=== PATIENT | male | born 1940 | race Two or more races ===

== ENCOUNTER 2024-11-17 16:37 | Inpatient (IN) | payer MEDICARE, MEDICAID ==
[~2024-11-17] VITALS: Ht 177.8 cm; Wt 86.3 kg
--- NOTE | 2024-11-17 17:18 | ECG ---
[facility] Test Date: 2024-11-17 Test Time: 17:03:54 Pat Name: MALLORY SOLARES Department: ER Room: Gender: M Poultry Farmworker: BROOK : 1940 Requested By: FRITZ CABRAL Order Number: [id number] Reading MD: Measurements Intervals [place] Rate: 98 P: 51 DE: 201 QRS: -30 QRSD: 95 T: 88 QT: 360 QTc: 460 Interpretive Statements Sinus rhythm Left axis deviation Consider anterior infarct Baseline wander in lead(s) II,aVR,aVF,V1,V2 Please click the below link to view image of tracing.
--- NOTE | 2024-11-17 17:25 | ECG ---
[facility] Test Date: 2024-11-17 Test Time: 17:24:05 Pat Name: MALLORY SOLARES Department: ER Room: Gender: M Movie Actor: BROOK : 1940 Requested By: FRITZ CABRAL Order Number: [id number] Reading MD: Measurements Intervals [place] Rate: 69 P: 27 MT: 145 QRS: -12 QRSD: 108 T: 17 QT: 437 QTc: 469 Interpretive Statements Sinus rhythm Borderline T abnormalities, lateral leads Please click the below link to view image of tracing.
--- NOTE | 2024-11-17 17:30 | ED.PDOC ---
HPI (NEURO) HPI Comments 84 year old male presents to the ED with chief complaint of dizziness. Patient reports that he has been experiencing dizziness with associated SOB, abdominal pain, N/V, back pain, sweats, and diaphoresis since yesterday. Patient denies any chest pain, cough, fever, chills, diarrhea, melena, or LOC. Chief Complaint: Dizziness Time Seen by MD: 17:26 Reviewed Notes: Nurses Notes, Medications, Allergies Information Source: Patient, Spouse Mode of Arrival: Wheelchair Severity: Moderate Dizziness/Weakness Severity: Bedridden, Unable to do activities Timing: Hours Duration: Since onset Prehospital treatment: None History of: DM, Hypertension Modifying factors: Nothing Past Medical History PAST MEDICAL HISTORY: DM, High Lipids, HTN Surgical History: Cholecystectomy Surgical History (Other): Head injury surgery, Bilateral knee surgery Family History Family History: Reviewed,noncontributory to illness Social History Smoker: Non-Smoker Alcohol: Denies ETOH Use Drugs: Denies Drug Use Lives In: Home Constitutional: reports: diaphoresis, sweats; denies: chills, fatigue, fever, malaise, weakness, others EENTM: denies: blurred vision, double vision, ear bleeding, ear discharge, ear drainage, ear pain, ear ringing, eye pain, eye redness, hearing loss, mouth pain, mouth swelling, nasal discharge, nose bleeding, nose congestion, nose pain, photophobia, tearing, throat pain, throat swelling, voice changes, others Respiratory: reports: shortness of breath; denies: cough, hemoptysis, orthopnea, SOB at rest, SOB with excertion, stridor, wheezing, others Cardiovascular: denies: chest pain, dizzy spells, diaphoresis, Dyspnea on exertion, edema, irregular heart beat, left arm pain, lightheadedness, palpitations, PND, syncope, others Gastrointestinal: reports: abdominal pain, nausea, vomiting; denies: abdomen distended, blood streaked bowels, constipated, diarrhea, dysphagia, difficulty swallowing, hematemesis, melena, poor appetite, poor fluid intake, rectal bleeding, rectal pain, others Genitourinary: denies: burning, dysuria, flank pain, frequency, hematuria, incontinence, penile discharge, penile sore, pain, testicle pain, testicle s welling, urgency, others Neurological: reports: dizziness; denies: fainting, headache, left sided numbness, left sided weakness, numbness, paresthesia, pre-existing deficit, right sided numbness, right sided weakness, seizure, speech problems, tingling, tremors, weakness, others Musculoskeletal: denies: back pain, gout, joint pain, joint swelling, muscle pain, muscle stiffness, neck pain, others Integumetry: denies: bruises, change in color, change in hair/nails, dryness, laceration, lesions, lumps, rash, wounds, others Allergic/Immunocompromised: denies: Difficulty Healing, Frequent Infections, Hives, Itching, others Hematologic/Lymphatic: denies: anemia, blood clots, easy bleeding, easy bruising, swollen glands, others Endocrine: denies: excessive hunger, excessive sweating, excessive thirst, excessive urination, flushing, intolerance to cold, intolerance to heat, unexplained weight gain, unexplained weight loss, others Psychiatric: denies: anxiety, bipolar disorder, depression, hopeless, panic disorder, schizophrenia, sleepless, suicidal, others All Other Systems: Reviewed and Negative Physical Exam General Appearance: No Apparent Distress, Normal HEENT: Normal ENT Inspection, PERRL/EOMI, TMs Normal Neck: Full Range of Motion, Non-Tender, Normal, Normal Inspection Respiratory: Chest Non-Tender, Lungs Clear, No Accessory Muscle Use, No Respira tory Distress, Normal Breath Sounds Cardiovascular: No Edema, No JVD, No Murmur, No Gallop, Normal Peripheral Pulses, Regular Rate/Rhythm Breast Exam: Deferred Gastrointestinal: No Organomegaly, Non Tender, No Pulsatile Mass, Normal Bowel Sounds, Soft Genitalia: Deferred Pelvic: Deferred Rectal: Deferred Extremities: No calf tenderness, Normal capillary refill, Normal inspection, Normal range of motion, Non-tender, No pedal edema Musculoskeletal : Apperance: Normal Neurologic: Alert, vessel scrapper helper II-XII nml as Tested, No Motor Deficits, Normal Affect, Normal Mood, No Sensory Deficits Cerebellar Function: Normal Reflexes: Normal Skin: Dry, Normal Color, Warm Lymphatic: No Adenopathy Was a procedure done? Was a procedure done?: No Differential Diagnosis (SZ) Seizure: Closed Head Injury, CVA/TIA, Meningitis, Syncope, Encephalopathy CVA: Delirium Tremens, DKA General Weakness: Anemia, Dehydration, Electrolyte imbalance Headache: Migraine X-Ray, Labs, Meds, VS Vital Signs Date Time Temp Pulse Resp B/P (MAP) Pulse Ox O2 Delivery O2 Flow Rate FiO2 11/17/24 18:52 57 17 126/64 (84) 98 11/17/24 17:03 98 11/17/24 16:45 97.4 103 20 171/67 (101) 95 Lab Test 11/17/24 19:21 11/17/24 18:01 11/17/24 17:00 Range/Units Troponin I High Sensitivity 3 L < 3 L </=54 ng/L White Blood Count 9.7 4.4-10.8 10^3/uL Red Blood Count 4.94 4.5-5.90 10^6/uL Hemoglobin 12.9 L 13.5-17.5 g/dL Hematocrit 39.4 L 41.0-53.0 % Mean Corpuscular Volume 79.8 L 80.0-100.0 fL Mean Corpuscular Hemoglobin 26.1 L 28.0-32.0 pg Mean Corpuscular Hemoglobin Concent 32.7 32.0-36.0 g/dL Red Cell Distribution Width 16.8 H 11.8-14.3 % Platelet Count 189 140-450 10^3/uL Mean Platelet Volume 8.3 6.9-10.8 fL Neutrophils (%) (Auto) 77.9 37.0-80.0 % Lymphocytes (%) (Auto) 16.8 10.0-50.0 % Monocytes (%) (Auto) 4.4 0.0-12.0 % Eosinophils (%) (Auto) 0.6 0.0-7.0 % Basophils (%) (Auto) 0.3 0.0-2.0 % Neutrophils # (Auto) 7.5 1.6-8.6 10 ^3/uL Lymphocytes # (Auto) 1.6 0.4-5.4 10 ^3/uL Monocytes # (Auto) 0.4 0-1.3 10 ^3/uL Eosinophils # (Auto) 0.1 0-0.8 10 ^3/uL Basophils # (Auto) 0 0-0.2 10 ^3/uL Nucleated Red Blood Cells 0.0 % Sodium Level 139 136-145 mmol/L Potassium Level 3.9 3.5-5.1 mmol/L Chloride Level 100 98-107 mmol/L Carbon Dioxide Level 29 20-31 mmol/L Anion Gap 10 5-15 Blood Urea Nitrogen 28 H 9-23 mg/dL Creatinine 1.13 0.700-1.30 mg/dL Glomerular Filtration Rate Calc 64 >90 mL/min BUN/Creatinine Ratio 24.8 H 10.0-20.0 Serum Glucose 316 H 74-106 mg/dL Calcium Level 9.3 8.7-10.4 mg/dL Total Bilirubin 0.7 0.2-1.0 mg/dL Aspartate Amino Transferase (AST) 14 13-40 U/L Alanine Aminotransferase (ALT) 19 7-40 U/L Alkaline Phosphatase 145 H 46-116 U/L Total Protein 6.7 5.7-8.2 g/dL Albumin 4.4 3.2-4.8 g/dL POC Glucose 269 H 70-106 mg/dl X-Ray, Labs, Meds, VS Comment 84-year-old male here today with complaints of dizziness, headache, nausea and vomiting. On arrival to ER, patient hypotensive and tachycardic however improved after normal saline. Labs notable for hyperglycemia without evidence of DKA or HHS. Patient received normal saline for this. On re-evaluation, patient is still complaining of dizziness. Meclizine was ordered. CT scan of the head also noted to have evidence of age-indeterminate infarct in the left frontoparietal lobe. Plan to admit the patient for an MRI of his brain and for further workup of his dizziness. Time of 1ST Reevaluation: 18:26 Reevaluation 1ST: Unchanged Patient Education/Counseling: Diagnosis, Treatment Family Education/Counseling: Diagnosis, Treatment Departure 1 Departure Time of Disposition: 20:22 Impression: Primary Impression: Dizziness Additional Impressions: Hyperglycemia History of CVA (cerebrovascular accident) Disposition: ADMITTED INPATIENT Admit to: Tele Condition: Stable Critical Care Note Critical Care Time?: Yes (30 min-critical care time only) Stability Stability form required: No Heart Score Heart Score: Heart Score Response (Comments) Value History N/A 0 EKG N/A 0 Age N/A 0 Risk Factors N/A 0 Troponin N/A 0 Total 0 I personally scribed for FRITZ CABRAL MD ([email or web address]) on 11/17/24 at 17:30. Electronically submitted by Rom Caruso ([email or web address]). FRITZ CABRAL MD Nov 17, 2024 17:30
--- NOTE | 2024-11-17 17:45 | DVH ---
CHEST RADIOGRAPH Indication: DIZZINESS Technique: Single frontal view of the chest was obtained COMPARISON: None FINDINGS: Lines and Tubes: None Lungs: Clear Pleura: No effusion. No pneumothorax. Cardiomediastinal contours: Unremarkable Bones: Unremarkable IMPRESSION: No acute disease.
--- NOTE | 2024-11-17 17:55 | DVH ---
Exam: CT HEAD WITHOUT CONTRAST History: DIZZINESS AND HEAD PAIN Technique: [address] images through the posterior fossa and the supratentorial compart ment were acquired without contrast and imaged using soft tissue and bone algorithms. RADIATION DOSE: DLP 933.87 mGy.cm; CTDI vol 52.73 mGy. Comparison: None Findings: There is no evidence of an intracranial hemorrhage, acute large vessel infarct, mass effect, or midli ne shift. Hypodensity in the left frontoparietal lobe. There is mild cerebral atrophy. Mild calcification of the carotid siphons. The calvarium, orbits, paranasal sinuses, sella, middle ears, and mastoids are unremarkable. The superficial soft tissues are within normal limits. Impression: 1. No acute intracranial abnormality. 2. Age indeterminate infarct in the left frontoparietal lobe. Consider MRI for further evaluation as clinically indicated.
[2024-11-17 18:25] LABS: Eosinophils # (auto) 0.1 10 ^3/uL (0-0.8); Lymphocytes # (auto) 1.6 10 ^3/uL (0.4-5.4); Monocytes # (auto) 0.4 10 ^3/uL (0-1.3)
[2024-11-17 18:26] LABS: Basophils # (auto) 0 10 ^3/uL (0-0.2); Basophils % (auto) 0.3 % (0.0-2.0); Eosinophils % (auto) 0.6 % (0.0-7.0); Hematocrit 39.4 % (41.0-53.0); Hemoglobin 12.9 g/dL (13.5-17.5); Lymphocytes % (auto) 16.8 % (10.0-50.0); Mean Corpuscular Hemoglobin 26.1 pg (28.0-32.0); Mean Corpuscular Hgb Conc. 32.7 g/dL (32.0-36.0); Mean Corpuscular Volume 79.8 fL (80.0-100.0); Monocytes % (auto) 4.4 % (0.0-12.0); Neutrophils # (auto) 7.5 10 ^3/uL (1.6-8.6); Neutrophils % (auto) 77.9 % (37.0-80.0); Platelet Count (auto) 189 10^3/uL (140-450); Red Blood Cells 4.94 10^6/uL (4.5-5.90); Red Cell Distribution Width 16.8 % (11.8-14.3); White Blood Cell 9.7 10^3/uL (4.4-10.8)
[2024-11-17 18:46] LABS: Alanine Aminotransferase 19 U/L (7-40); Albumin 4.4 g/dL (3.2-4.8); Anion Gap 10 (5-15); Aspartate Aminotransferase 14 U/L (13-40); BUN/Creatinine Ratio 24.8 (10.0-20.0); Calcium 9.3 mg/dL (8.7-10.4); Carbon Dioxide 29 mmol/L (20-31); Chloride 100 mmol/L (98-107); Potassium 3.9 mmol/L (3.5-5.1); Sodium 139 mmol/L (136-145)
[2024-11-17 18:47] LABS: Bilirubin, Total 0.7 mg/dL (0.2-1.0); Total Protein 6.7 g/dL (5.7-8.2)
[2024-11-17 18:50] LABS: Alkaline Phosphatase 145 U/L (46-116); Blood Urea Nitrogen 28 mg/dL (9-23); Glucose 316 mg/dL (74-106)
[2024-11-17] MEDS: SODIUM CHLORIDE 0.9% 1,000 ML IV ONE (20:00)
[2024-11-17] MEDS: ONDANSETRON HCL 4 MG/2 ML VIAL IV ONE (21:41)
--- NOTE | 2024-11-17 23:21 | DVHHPRES ---
History of Present Illness Resident Creating Document: HARRIETT LAZO RESDIENT History of Present Illness This is an 84-year-old male with past medical history of diabetes, dyslipidemia and hypertension brought to the hospital due to dizziness. Per patient's daughter, the patient waking up today morning and had dizziness, nausea, vomiting (had vomited 3 times). Patient also reports mild shortness of breaths, and generalized weakness. Patient denies fever, cough, chest pain, diarrhea, or loss of consciousness. PMHx: diabetes, dyslipidemia and hypertension PSHx: Cholecystectomy, bilateral knee surgery, head surgery due to trauma Social history: Patient uses walker for mobility, due to knee injury, denies smoking or any other drug use Home medication: Atorvastatin 20 mg, aspirin 81 mg, pioglitazone 15 mg, omepr azole 20 mg, losartan/hydrochlorothiazide 25/12.5, metformin 1 g Allergic history: No known allergies Review of Systems Review of Systems General: patient denies fever, fatigue, weaknes, sweating, any recent changes in appetite and weight HEENT: Reports dizziness, nausea and vomiting Cardiovascular: Denies chest pain, palpitations, dyspnea on exertion, orthopnea, or claudication. Respiratory: Reports shortness of breaths Gastrointestinal: Denies nausea, vomiting, dysphagia, odynophagia, heartburn, abdominal pain, flatulence, bloating, diarrhea, constipation, change in stool, or blood in stool. Genitourinary: No dysuria, hematuria, discharge, frequency, urgency, nocturia, incontinence, and urinary retention. Endocrine: No heat or cold intolerance, polydipsia, polyuria, and polyphagia. Neurological: No dizziness, extremity weakness and numbness, tremors, gait disturbance, seizures, and memory impairment. Psychiatric: Denies depression, anxiety,or insomnia. Musculoskeletal: Denies neck pain, stiffness and swelling, back pain, muscle weakness, joint pain, stiffness, swelling, or limited range of motion. Skin: No rashes, itching, skin lesion, changes in hair, nail, skin texture and breast. Hematologic/Lymphatic: Denies easy bruising, bleeding tendencies, or lymph node enlargement. Allergies: Coded Allergies: NO KNOWN ALLERGIES (Unverified , 11/17/24) Exam Vital Signs Vital Signs Date Time Temp Pulse Resp B/P (MAP) Pulse Ox O2 Delivery O2 Flow Rate FiO2 11/17/24 21:46 98.2 98.2 11/17/24 19:00 57 17 98 Room Air 11/17/24 18:52 126/64 (84) Exam General Appearance: Alert, Oriented X3, Cooperative, No acute distress HEENT: Atraumatic, PERRLA, EOMI, Mucous membrane moist/pink Respiratory: Clear to auscultation, Normal air movement Cardiovascular: Regular rate, Normal S1, Normal S2, No murmurs, no chest wall tenderness Abdominal: Normal bowel sounds, Soft, No tenderness, No hepatospenomegaly, No masses Extremities: No clubbing, No cyanosis, No edema, Normal pulses, No tenderness/swelling Skin: No rashes, No breakdown, No significant lesion Neuro: Normal gait, Normal speech, Strength at 5/5 X4 ext, Normal tone, Sensation intact, Cranial nerves 3-12 NL, Reflexes 2+ Psych/Mental Status: Mental status NL, Mood NL Labs/Xrays Labs Test 11/17/24 21:43 11/17/24 19:21 11/17/24 18:01 Range/Units POC Glucose 315 H 70-106 mg/dl Troponin I High Sensitivity 3 L </=54 ng/L White Blood Count 9.7 4.4-10.8 10^3/uL Red Blood Count 4.94 4.5-5.90 10^6/uL Hemoglobin 12.9 L 13.5-17.5 g/dL Hematocrit 39.4 L 41.0-53.0 % Mean Corpuscular Volume 79.8 L 80.0-100.0 fL Mean Corpuscular Hemoglobin 26.1 L 28.0-32.0 pg Mean Corpuscular Hemoglobin Concent 32.7 32.0-36.0 g/dL Red Cell Distribution Width 16.8 H 11.8-14.3 % Platelet Count 189 140-450 10^3/uL Mean Platelet Volume 8.3 6.9-10.8 fL Neutrophils (%) (Auto) 77.9 37.0-80.0 % Lymphocytes (%) (Auto) 16.8 10.0-50.0 % Monocytes (%) (Auto) 4.4 0.0-12.0 % Eosinophils (%) (Auto) 0.6 0.0-7.0 % Basophils (%) (Auto) 0.3 0.0-2.0 % Neutrophils # (Auto) 7.5 1.6-8.6 10 ^3/uL Lymphocytes # (Auto) 1.6 0.4-5.4 10 ^3/uL Monocytes # (Auto) 0.4 0-1.3 10 ^3/uL Eosinophils # (Auto) 0.1 0-0.8 10 ^3/uL Basophils # (Auto) 0 0-0.2 10 ^3/uL Nucleated Red Blood Cells 0.0 % Sodium Level 139 136-145 mmol/L Potassium Level 3.9 3.5-5.1 mmol/L Chloride Level 100 98-107 mmol/L Carbon Dioxide Level 29 20-31 mmol/L Anion Gap 10 5-15 Blood Urea Nitrogen 28 H 9-23 mg/dL Creatinine 1.13 0.700-1.30 mg/dL Glomerular Filtration Rate Calc 64 >90 mL/min BUN/Creatinine Ratio 24.8 H 10.0-20.0 Serum Glucose 316 H 74-106 mg/dL Calcium Level 9.3 8.7-10.4 mg/dL Total Bilirubin 0.7 0.2-1.0 mg/dL Aspartate Amino Transferase (AST) 14 13-40 U/L Alanine Aminotransferase (ALT) 19 7-40 U/L Alkaline Phosphatase 145 H 46-116 U/L Total Protein 6.7 5.7-8.2 g/dL Albumin 4.4 3.2-4.8 g/dL Assessment/Plan Assessment/Plan Dizziness/vertigo, likely due to stroke Ischemic stroke Dyslipidemia Head CT scan shows age intermediate infarct in left frontotemporal lobes Echo, lipid profile, TSH, Carotid Doppler, MRI brain Continue atorvastatin and aspirin Pneumonia, likely due to Gram-positive and Gram-negative/viral Chest x-ray shows right lower lobe consolidation Empiric antibiotic azithromycin and ceftriaxone IV fluid Breathing treatment p.r.n. Diabetes type 2, with hyperglycemia Insulin Lantus 10 units Insulin moderate disease IV fluid DIET: Cardiac diet DVT PROPHYLAXIS: Lovenox CODE STATUS: Goal of care discussed for more than 21 minutes, full DISPOSITION: Telemetry Patient's status and paln discussed with with the patient and the patient's daughter at the bedside. Case discussed with Dr. Hyman Plan discussed with: Patient, Other (RN) My Orders Orders - HARRIETT LAZO RESDIENT Procedure Category Date Status Time Admit ADMIT 11/17/24 Transmitted 23:16 Nitroglycerin PHA 11/17/24 Transmitted Sublingual (Ntrostat 23:30 Morphine Sulfate PHA 11/17/24 Transmitted Injection 23:30 Oxygen By Nasal RT 11/17/24 Transmitted Cannula 23:16 Stat Ekg For Chest [facility] 11/17/24 Transmitted Pain 23:16 Notify Md Of Changes [facility] 11/17/24 Transmitted From Base 23:16 Horse Racing Analyst For BANNER 11/17/24 Transmitted 24 Hours 23:16 Emergency Dysrhythmia [facility] 11/17/24 Transmitted Protocol 23:16 Rhythm Strips Once [facility] 11/17/24 Transmitted Every Shift 23:16 Date of Service: Nov 18, 2024 Billing Provider: KOMAL HYMAN MD Common Visit Codes: [id number] INP/OBS CARE (HIGH) HARRIETT LAZO RESDIENT Nov 17, 2024 23:21 KOMAL HYMAN MD Nov 19, 2024 09:22
[2024-11-17] MEDS ORDERED: NITROGLYCERIN 0.4 MG SL TAB SL PRN (23:30)
[2024-11-17] MEDS ORDERED: MORPHINE SULFATE INJ 2 MG/ml SYRG IV PRN (23:30)
[2024-11-18] MEDS ORDERED: ONDANSETRON HCL 4 MG/2 ML VIAL IV PRN (01:30)
[2024-11-18] MEDS ORDERED: ENOXAPARIN SOD 40 MG/0.4 ML SYRINGE SC ONE (01:30)
[2024-11-18] MEDS ORDERED: DEXTROSE (50%) 50ML SYRG IV PRN (01:30)
[2024-11-18] MEDS: InsuLIN REG 1unit/0.01ml Soln (100units/ml) IV ONE (01:30)
[2024-11-18 04:00] VITALS: PULSE 100; RESP 18; O2SAT 95
[2024-11-18] MEDS: ACCU-CHEK COMFORT CURVE STRIP VI SCH (04:01)
[2024-11-18] MEDS: INSULIN LANTUS (GLARGINE) 1 /0.01ml (100units/ml) SC ONE (04:05)
[2024-11-18] MEDS: InsuLIN REG 1unit/0.01ml Soln (100units/ml) SC SCH (04:05)
[2024-11-18] MEDS: ATORVASTATIN 20 MG TAB PO ONE (04:12)
[2024-11-18] MEDS: POTASSIUM CHL 20 Meq TABLET PO ONE (04:12)
[2024-11-18] MEDS: ASPirin 81 mg TAB PO ONE ×2 (04:12→04:17)
[2024-11-18] MEDS: PANTOPRAZOLE 40 MG/10 ML VIAL INJ IV ONE (04:13)
[2024-11-18] MEDS: ENOXAPARIN SOD 40 MG/0.4 ML SYRINGE SC ONE (04:13)
[2024-11-18] MEDS: ONDANSETRON HCL 4 MG/2 ML VIAL IV ONE (04:13)
[2024-11-18 04:21] LABS: Basophils # (auto) 0 10 ^3/uL (0-0.2); Eosinophils # (auto) 0.1 10 ^3/uL (0-0.8); Mean Corpuscular Volume 80.5 fL (80.0-100.0)
[2024-11-18 04:23] LABS: Basophils % (auto) 0.4 % (0.0-2.0); Eosinophils % (auto) 0.8 % (0.0-7.0); Hematocrit 38.1 % (41.0-53.0); Hemoglobin 12.6 g/dL (13.5-17.5); Lymphocytes # (auto) 2.3 10 ^3/uL (0.4-5.4); Lymphocytes % (auto) 25.1 % (10.0-50.0); Mean Corpuscular Hemoglobin 26.6 pg (28.0-32.0); Monocytes # (auto) 0.6 10 ^3/uL (0-1.3); Monocytes % (auto) 7.1 % (0.0-12.0); Neutrophils % (auto) 66.6 % (37.0-80.0); Platelet Count (auto) 204 10^3/uL (140-450); Red Blood Cells 4.73 10^6/uL (4.5-5.90); Red Cell Distribution Width 16.5 % (11.8-14.3)
[2024-11-18] MEDS: SODIUM CHLORIDE 0.9% 500 ML IV ONE (04:24)
[2024-11-18 04:39] LABS: Alanine Aminotransferase 16 U/L (7-40); Albumin 4.1 g/dL (3.2-4.8); Anion Gap 7 (5-15); Aspartate Aminotransferase 15 U/L (13-40); BUN/Creatinine Ratio 22.1 (10.0-20.0); Calcium 9.3 mg/dL (8.7-10.4); Carbon Dioxide 31 mmol/L (20-31); Chloride 102 mmol/L (98-107); Potassium 4.1 mmol/L (3.5-5.1); Sodium 140 mmol/L (136-145)
[2024-11-18 04:40] LABS: Total Protein 6.8 g/dL (5.7-8.2)
[2024-11-18 04:43] LABS: Alkaline Phosphatase 129 U/L (46-116); Blood Urea Nitrogen 23 mg/dL (9-23); Glucose 245 mg/dL (74-106)
[2024-11-18 08:05] LABS: Triglycerides 99 mg/dL (< 150)
[2024-11-18 08:06] LABS: LDL Cholesterol 39 mg/dL (< 100)
[2024-11-18 08:08] LABS: Cholesterol 83 mg/dL (< 200)
[2024-11-18 08:09] LABS: HDL Cholesterol 27 mg/dL (40-59)
--- NOTE | 2024-11-18 08:57 | DVH ---
Carotid Duplex Date: 11/18/2024 08:01 AM Clinical History: stroke, syncope Comparison: None Technique: Duplex Doppler evaluation of the extracranial carotid and vertebral arteries including color Doppler and spectral/pulsed waveform analysis was performed. Findings: RIGHT SIDE: The peak systolic velocities are 98 cm/s in the 63CCA and 98 cm/s in the proximal ICA.The ICA/CCA rat io is less than 2. The external carotid artery is patent with peak systolic velocity of 98 cm/s proximally. There is appropriate antegrade flow in the right vertebral artery. LEFT SIDE: The peak systolic velocities are 96 cm/s in the distal CCA and 124 cm/s in the proximal ICA. The ICA /CCA ratio is less than 2. The external carotid artery is patent with peak systolic velocity of 76 cm/s proximally. There is appropriate antegrade flow in the left vertebral artery. IMPRESSION: No hemodynamically significant stenosis noted in the right carotid system. No hemodynamically significant stenosis noted in the left carotid system. Reference: Radiology 2003; 229:340-346
[2024-11-18] MEDS: PANTOPRAZOLE 40 MG TAB PO ONE (09:49)
[2024-11-18] MEDS: cefTRIAXone 1GM/50ML D5W 50 ML IV SCH (09:50)
[2024-11-18] MEDS ORDERED: ENOXAPARIN SOD 40 MG/0.4 ML SYRINGE SC SCH (10:00)
[2024-11-18] MEDS ORDERED: PANTOPRAZOLE 40 MG/10 ML VIAL INJ IV SCH (10:00)
[2024-11-18] MEDS ORDERED: AZITHROMYCIN 500MG/ 250ML 250 ML IV SCH (10:00)
[2024-11-18] MEDS: ASPirin 81 mg TAB PO SCH (10:12)
[2024-11-18 10:14] VITALS: PULSE 77; RESP 16; O2SAT 97
--- NOTE | 2024-11-18 13:09 | DVH ---
PROCEDURE: MRI BRAIN HEAD WO CONTRAST INDICATION: Stroke EXAM DATE: 11/18/2024 12:20 PM COMPARISON: None TECHNIQUE: MRI of the brain without intravenous contrast. FINDINGS: Diffusion weighted images of the brain demonstrate no evidence of acute infarction. There is no evidence of acute intracranial hemorrhage, extra-axial collection, mass effect, midline s hift, herniation or hydrocephalus. Mild cerebral atrophy. Postsurgical changes related to left frontoparietal craniotomy. Underlying cystic encephalomalacia a nd gliosis. [id number] changes of chronic microvascular ischemic disease. There are no signal abnormalities on the susceptibility weighted sequences. The major vascular flow voids are present. The visualized paranasal sinuses and mastoid air cells are clear. The surrounding soft tissues and o sseous structures are unremarkable. IMPRESSION: 1. No evidence of acute infarction, intracranial hemorrhage, mass effect or hydrocephalus. Postsurgic al changes related to left frontoparietal craniotomy with underlying cystic encephalomalacia and glio sis. [id number] changes of chronic microvascular ischemic disease. Mild cerebral atrophy. HS:Y
[2024-11-18] MEDS: AZITHROMYCIN 250 MG TAB PO SCH (13:30)
[2024-11-18 13:44] VITALS: O2SAT 95
--- NOTE | 2024-11-18 14:53 | DVHPNRES ---
Progress Note Date Seen: Nov 18, 2024 Resident Creating Document: JHAJJOZRUSTAMLISA RESIDENT Medical Necessity Reason Pt with a Central, PICC or Fol: No Subjective Review of Systems Patient is 84-year-old male with past medical history of diabetes, dyslipidemia and hypertension brought to the hospital due to dizziness. Patient reports that about 4 months ago he fell back on his head and since then he has been having episodes of dizziness, mostly when he tries to get up from the bed or sitting position and feels that the things around him are spinning and his legs feel weak. Patient reports having intermittent nausea and vomiting over the last 4 months. As per patient's daughter he woke up yesterday morning and had dizziness, nausea, vomiting (had vomited 3 times). Patient also reports cough, some difficulty swallowing, generalized weakness. Patient denies fever, chest pain, diarrhea, or loss of consciousness. PMHx: diabetes, dyslipidemia and hypertension PSHx: Cholecystectomy, bilateral knee surgery, head surgery due to trauma Social history: Patient uses walker for mobility, due to knee injury, denies smoking or any other drug use Home medication: Atorvastatin 20 mg, aspirin 81 mg, pioglitazone 15 mg, omeprazole 20 mg, losartan/hydrochlorothiazide 25/12.5, metformin 1 g Allergic history: No known allergies Review of systems Patient seen and examined wheelchair in the ER He denied dizziness, nausea, vomiting at present Reports generalized weakness. Objective vital signs Vital Sign Date Time Temp Pulse Resp B/P (MAP) Pulse Ox O2 Delivery O2 Flow Rate FiO2 11/18/24 13:44 95 Room Air* 0 21 11/18/24 10:14 77 16 11/18/24 10:14 98.3 120/63 (82) 98.3 Total Intake and Output 11/17/24 11/17/24 11/18/24 15:00 23:00 07:00 Intake Total 1000 ml 500 ml Balance 1000 ml 500 ml medications Current Medications Medications Dose Ordered Sig/Steven Route Start Time Stop Time Status Last Admin Dose Admin Nitroglycerin 0.4 mg Q5MINP PRN SL 11/17/24 23:30 Morphine Sulfate 2 mg Q30M PRN IV 11/17/24 23:30 Insulin Glargine 10 units QAM SC 11/19/24 07:00 Ondansetron HCl 4 mg Q8HPRN PRN IV 11/18/24 01:30 Enoxaparin Sodium 40 mg DAILY SC 11/19/24 10:00 Diagnostic Test (Pha) 1 strip IQ4HR 11/18/24 04:00 11/18/24 12:00 1 STRIP Insulin Human Regular IQ4HR SC 11/18/24 04:00 11/18/24 13:30 6 UNITS Dextrose 50 ml UD PRN IV 11/18/24 01:30 Atorvastatin Calcium 40 mg HS PO 11/18/24 22:00 Aspirin 81 mg DAILY PO 11/18/24 10:00 11/18/24 10:12 81 MG Ceftriaxone Sodium 50 ml @ 100 mls/hr DAILY@09 IV 11/18/24 09:00 11/18/24 09:50 100 MLS/HR Azithromycin 500 mg DAILY PO 11/18/24 10:00 11/18/24 13:30 500 MG Pantoprazole Sodium 40 mg DAILY@0600 PO 11/19/24 06:00 Examination Physical Examination Constipation: Patient was alert and oriented to time, place and person and does not appear to be in acute distress Gen - no pallor, no icterus, no cyanosis, no clubbing, no LAD, no edema . Skin - Patients skin is warm and dry. HEENT - normocephalic, atraumatic, moist mucous membranes. Neck - full ROM, no LAD, no JVD Pulmonary - B/L equal air entry with the right medial lower lobe inspiratory rales cardiovascular - normal S1,S2 heard. no murmurs heard. GI - soft abdomen without tenderness to palpation. no hepatospleenomegaly. Bowel sounds normoactive Neurological - Sensory: Bilateral sensation to temperature, temperature, position intact Motor: Right upper and lower extremity strength 4/5, left upper and lower extremity strength 5/5 Cranial nerves CN 2- visual acuity intact, questionable visual field abnormality in the left eye CN 3,4,6- extraocular movements normal CN 5- normal facial sensation and jaw strength CN 7- normal facial muscle strength CN 8- patient has bilateral ear aids CN 9,10- uvula central, reports some difficulty swallowing CN 12- tongue midline Cerebellar: Nose to finger test abnormal-dysmetria, gait not assessed laboratory and microbiology Laboratory Tests 11/18/24 04:10 Test 11/18/24 04:10 Range/Units Serum Glucose 245 H 74-106 mg/dL Problem List/Assessment/Plan Problem List/Assessment/Plan Dizziness/vertigo likely d/t dehydration, orthostatic hypotension Acute stroke ruled out R/O cardiac cause Head CT scan shows age intermediate infarct in left frontoparietal lobe MRI brain without contrast shows No evidence of acute infarction, intracranial hemorrhage, mass effect or hydrocephalus. Postsurgical changes related to left frontoparietal craniotomy with underlying cystic encephalomalacia and gliosis. [id number] changes of chronic microvascular ischemic disease. Mild cerebral atrophy. Echo pending lipid profile- normal TSH- normal Carotid Doppler- no hemodynamically significant stenosis bilaterally on atorvastatin 40 mg and aspirin 81 mg q.d. Physical therapy evaluation pending Pneumonia, community-acquired versus suspected aspiration to Gram- negative/atypical bacteria Chest x-ray shows right medial lower lobe consolidation on azithromycin and ceftriaxone SpO2 more than 92% on room air Uncontrolled type 2 diabetes mellitus with hyperglycemia Insulin Lantus 10 units Insulin moderate sliding scale IV fluids GERD Protonix 40 mg p.o. daily DVT prophylaxis: Lovenox Goals of care discussed with the patient and patient's daughter for over 25 minutes. Full code Plan discussed with Dr. Hyman Plan discussed with: Patient, Daughter My Orders My Orders Orders - BERT LUBIN Procedure Category Date Status Time Azithromycin Tablet PHA 11/18/24 In Process (Zithromax Tablet) 10:00 Pantoprazole Tablet PHA 11/19/24 In Process (Protonix Tablet) 06:00 Pt Request For Service PT 11/18/24 Logged 13:44 Date of Service: Nov 18, 2024 Billing Provider: KOMAL HYMAN MD Common Visit Codes: [id number] INP/OBS CARE(HIGH) BERT LUBIN RESIDENT Nov 18, 2024 14:53 KOMAL HYMAN MD Nov 19, 2024 09:23
[2024-11-18] MEDS ORDERED: PIO30T PO (14:54)
[2024-11-18] MEDS ORDERED: LOSA-534 PO (14:54)
[2024-11-18] MEDS ORDERED: OMEP20TA PO (14:54)
[2024-11-18] MEDS ORDERED: ATOR20TA50 PO (14:54)
[2024-11-18] MEDS ORDERED: ASPI1TAB20 PO (14:54)
[2024-11-18] MEDS ORDERED: HYDR25TA5 PO (14:54)
[2024-11-18 16:50] VITALS: BP 130/62; PULSE 85; RESP 18; TEMP 97.8; O2SAT 94
[2024-11-18 19:00] VITALS: BP 143/63; PULSE 80; RESP 18; TEMP 97.4; O2SAT 92
[2024-11-18 20:00] VITALS: PULSE 86
[2024-11-18] MEDS: ATORVASTATIN 20 MG TAB PO SCH (22:06)
[2024-11-19] VITALS (8 sets, daily range): BP systolic 117–135; BP diastolic 60–70; PULSE 75–93; RESP 18; TEMP 36.6; O2SAT 93–97
[2024-11-19 04:15] LABS: Urine Bacteria None Seen /hpf (None Seen)
[2024-11-19 04:22] LABS: Urine Blood Negative /uL (Negative); Urine Clarity Clear (Clear); Urine Color Light-Yellow (Yellow); Urine Protein, UAD Negative (Negative); Urine Specific Gravity 1.011 (1.001-1.035); Urine Squamous Epithelial Cell None Seen /hpf (<5); Urine Urobilinogen Normal (Negative); Urine WBC < 1 /HPF (0-3)
[2024-11-19 04:53] LABS: Amphetamine Screen, Urine Neg (NEGATIVE); Barbiturate Scree,Urine Neg (NEGATIVE); Benzodiazephine Screen, Urine Neg (NEGATIVE); Cannabinoid Screen, Urine Neg (NEGATIVE); Cocaine Screen, Urine Neg (NEGATIVE); Opiate Scree,Urine Neg (NEGATIVE); Phencyclidine Screen, Urine Neg (NEGATIVE)
[2024-11-19] MEDS: PANTOPRAZOLE 40 MG TAB PO SCH (05:55)
[2024-11-19] MEDS: INSULIN LANTUS (GLARGINE) 1 /0.01ml (100units/ml) SC SCH (06:09)
[2024-11-19] MEDS ORDERED: INSULIN LANTUS (GLARGINE) 1 /0.01ml (100units/ml) SC SCH (07:00)
[2024-11-19 07:17] LABS: Basophils # (auto) 0 10 ^3/uL (0-0.2); Eosinophils # (auto) 0.1 10 ^3/uL (0-0.8); Eosinophils % (auto) 1.9 % (0.0-7.0); Lymphocytes # (auto) 1.8 10 ^3/uL (0.4-5.4); Nucleated Red Blood Cells % 0.1 %; White Blood Cell 6.3 10^3/uL (4.4-10.8)
[2024-11-19 07:20] LABS: Basophils % (auto) 0.6 % (0.0-2.0); Hematocrit 37.3 % (41.0-53.0); Hemoglobin 12.3 g/dL (13.5-17.5); Lymphocytes % (auto) 27.9 % (10.0-50.0); Mean Corpuscular Hemoglobin 26.2 pg (28.0-32.0); Mean Corpuscular Hgb Conc. 33.1 g/dL (32.0-36.0); Mean Corpuscular Volume 79.4 fL (80.0-100.0); Monocytes # (auto) 0.4 10 ^3/uL (0-1.3); Monocytes % (auto) 6.7 % (0.0-12.0); Neutrophils % (auto) 62.9 % (37.0-80.0); Platelet Count (auto) 187 10^3/uL (140-450); Red Cell Distribution Width 15.9 % (11.8-14.3)
[2024-11-19] MEDS: ENOXAPARIN SOD 40 MG/0.4 ML SYRINGE SC SCH (09:09)
[2024-11-19] MEDS: LOSARTAN POTASSIUM 25 MG TAB PO SCH (09:10)
[2024-11-19 09:17] LABS: RPR Non Reactive (Non Reactive)
[2024-11-19 09:29] LABS: Chloride 105 mmol/L (98-107); Potassium 3.6 mmol/L (3.5-5.1); Sodium 142 mmol/L (136-145)
[2024-11-19 09:30] LABS: Calcium 9.5 mg/dL (8.7-10.4)
[2024-11-19 09:35] LABS: BUN/Creatinine Ratio 17.4 (10.0-20.0); Blood Urea Nitrogen 16 mg/dL (9-23); Glucose 101 mg/dL (74-106)
[2024-11-19 09:39] LABS: Anion Gap 9 (5-15); Carbon Dioxide 28 mmol/L (20-31)
[2024-11-19] MEDS ORDERED: ASPirin 81 mg TAB PO SCH (10:00)
[2024-11-19] MEDS ORDERED: AUG875T PO (11:43)
[2024-11-19] MEDS ORDERED: ATOR40TA52 PO (11:43)
[2024-11-19] MEDS ORDERED: LOSA-534 PO (11:58)
--- NOTE | 2024-11-19 18:34 | DVHSR ---
APPROVED REPORT EXAM: LIMITED Two-dimensional and M-mode echocardiogram with Doppler and color Doppler. Blood Pressure: 128/70 mmHg INDICATION stroke RISK FACTORS Height: 5'10, Weight: 190 DIMENSIONS LVDd3.9 (3.8-5.7cm)LA (2D)3.0 (1.9-4.0cm)Aortic Root3.4 (2.0-3.7cm) LVDs3.0 (2.5-4.0cm)LA (MM) (1.9-4.0cm)Aortic Cusp Exc1.7 (1.5-2.0cm) EF (%) 55.0 (55-70%)Rt. Atrium3.5 (1.9-4.0cm)Asc. Aorta cm IVSd1.1 (0.7-1.1cm)RV (D) (1.8-2.4cm) PWd1.0 (0.7-1.1cm) Mitral Valve MitralMitral Stenosis E wave0.61m/sMV Mean GR.mmHg A wave0.74m/sMV Peak GR.mmHg E/A ratio0.82D MVAcm2 DECEL [id number] 1/2 Timems Aortic Valve Aortic ValveAortic Stenosis V10.73m/Robert Mean GR.3mmHg V21.05m/Robert Peak GR.4mmHg LVOT Diameter2.1 (1.8-2.4cm)Doppler AVA2.41cm2 Pulmonic Valve V20.98m/s Tricuspid Valve TR Velocity2.29m/s [id number] Other Information Quality : Technically LimitedRhythm : Technically limited study due to body habitus.patient position. Conclusion Technically good study. Sinus rhythm. Normal chamber sizes. Normal valves. EF of 60% with normal RV function. Dopplers unremarkable. No pericardial effusion masses or vegetations.
--- NOTE | 2024-11-19 19:37 | DVHDSRES ---
Discharge Summary Date of Admission Resident Creating Document: BERT LUBIN RESIDENT Nov 17, 2024 at 23:16 Date of Discharge: Nov 19, 2024 Admitting Diagnosis Dizziness/vertigo, likely due to stroke Ischemic stroke Dyslipidemia Pneumonia, likely due to Gram-positive and Gram-negative/viral Diabetes type 2, with hyperglycemia Wounds: none Labs/Diagnostic Data: Laboratory Results Test 11/19/24 11:24 11/19/24 06:14 11/19/24 04:05 11/18/24 13:00 POC Glucose 291 mg/dl (70-106) White Blood Count 6.3 10^3/uL (4.4-10.8) Red Blood Count 4.70 10^6/uL (4.5-5.90) Hemoglobin 12.3 g/dL (13.5-17.5) Hematocrit 37.3 % (41.0-53.0) Mean Corpuscular Volume 79.4 fL (80.0-100.0) Mean Corpuscular Hemoglobin 26.2 pg (28.0-32.0) Mean Corpuscular Hemoglobin Concent 33.1 g/dL (32.0-36.0) Red Cell Distribution Width 15.9 % (11.8-14.3) Platelet Count 187 10^3/uL (140-450) Mean Platelet Volume 8.1 fL (6.9-10.8) Neutrophils (%) (Auto) 62.9 % (37.0-80.0) Lymphocytes (%) (Auto) 27.9 % (10.0-50.0) Monocytes (%) (Auto) 6.7 % (0.0-12.0) Eosinophils (%) (Auto) 1.9 % (0.0-7.0) Basophils (%) (Auto) 0.6 % (0.0-2.0) Neutrophils # (Auto) 4.0 10 ^3/uL (1.6-8.6) Lymphocytes # (Auto) 1.8 10 ^3/uL (0.4-5.4) Monocytes # (Auto) 0.4 10 ^3/uL (0-1.3) Eosinophils # (Auto) 0.1 10 ^3/uL (0-0.8) Basophils # (Auto) 0 10 ^3/uL (0-0.2) Nucleated Red Blood Cells 0.1 % Sodium Level 142 mmol/L (136-145) Potassium Level 3.6 mmol/L (3.5-5.1) Chloride Level 105 mmol/L (98-107) Carbon Dioxide Level 28 mmol/L (20-31) Anion Gap 9 (5-15) Blood Urea Nitrogen 16 mg/dL (9-23) Creatinine 0.92 mg/dL (0.700-1.30) Glomerular Filtration Rate Calc 82 mL/min (>90) BUN/Creatinine Ratio 17.4 (10.0-20.0) Serum Glucose 101 mg/dL (74-106) Calcium Level 9.5 mg/dL (8.7-10.4) Urine Color Light-yellow (Yellow) Urine Clarity Clear (Clear) Urine pH 7.0 (5.0-9.0) Urine Specific [place] 1.011 (1.001-1.035) Urine Protein Negative (Negative) Urine Ketones Negative (Negative) Urine Blood Negative /uL (Negative) Urine Nitrite Negative (Negative) Urine Bilirubin Negative (Negative) Urine Urobilinogen Normal mg/dL (Negative) Urine Leukocyte Esterase Negative /uL (Negative) Urine RBC None seen /hpf (0 - 3) Urine Microscopic WBC < 1 /HPF (0-3) Urine Squamous Epithelial Cells None seen /hpf (<5) Urine Bacteria None seen /hpf (None Seen) Urine Glucose Normal mg/dL (Normal) Urine Opiates Screen Neg (NEGATIVE) Urine Fentanyl Screen Neg (NEGATIVE) Urine Barbiturates Screen Neg (NEGATIVE) Urine Phencyclidine Screen Neg (NEGATIVE) Urine Amphetamines Screen Neg (NEGATIVE) Urine Benzodiazepines Screen Neg (NEGATIVE) Urine Cocaine Screen Neg (NEGATIVE) Urine Cannabinoids Screen Neg (NEGATIVE) Rapid Plasma Reagin Non reactive (Non Reactive) Test 11/18/24 04:10 11/17/24 19:21 Hemoglobin A1c 9.9 % A1C (<5.7) Total Bilirubin 1.0 mg/dL (0.2-1.0) Aspartate Amino Transferase (AST) 15 U/L (13-40) Alanine Aminotransferase (ALT) 16 U/L (7-40) Alkaline Phosphatase 129 U/L (46-116) Total Protein 6.8 g/dL (5.7-8.2) Albumin 4.1 g/dL (3.2-4.8) Triglycerides Level 99 mg/dL (< 150) Cholesterol Level 83 mg/dL (< 200) LDL Cholesterol 39 mg/dL (< 100) HDL Cholesterol 27 mg/dL (40-59) Vitamin B12 Level 340 pg/mL (211-911) Beta-Hydroxybutyric Acid 0.117 mmol/L (< 0.4) Thyroid Stimulating Hormone (TSH) 1.30 uIU/mL (0.55-4.78) Troponin I High Sensitivity 3 ng/L (</=54) Other Laboratory Tests 11/19/24 06:14 Brief Hx & Hospital Course: Patient is 84-year-old male with past medical history of diabetes, dyslipidemia and hypertension brought to the hospital due to dizziness. Patient reports that about 4 months ago he fell back on his head and since then he has been having episodes of dizziness, mostly when he tries to get up from the bed or sitting position and feels that the things around him are spinning and his legs feel weak. Patient reports having intermittent nausea and vomiting over the last 4 months. As per patient's daughter he woke up yesterday morning and had dizziness, nausea, vomiting (had vomited 3 times). Patient also reports cough, some difficulty swallowing, generalized weakness. Patient denies fever, chest pain, diarrhea, or loss of consciousness. PMHx: diabetes, dyslipidemia and hypertension PSHx: Cholecystectomy, bilateral knee surgery, head surgery due to trauma Social history: Patient uses walker for mobility, due to knee injury, denies smoking or any other drug use Home medication: Atorvastatin 20 mg, aspirin 81 mg, pioglitazone 15 mg, omeprazole 20 mg, losartan/hydrochlorothiazide 25/12.5, metformin 1 g Allergic history: No known allergies Hospital course Patient was admitted to the hospital for dizziness and was worked up to rule out acute stroke. CT head without contrast showed left frontoparietal lobe age indeterminate infarct. This was followed by MRI brain without contrast which showed No evidence of acute infarction, intracranial hemorrhage, mass effect or hydrocephalus. Postsurgical changes related to left frontoparietal craniotomy with underlying cystic encephalomalacia and gliosis. Patient was given IV fluid hydration. Orthostatic vitals were done and negative for orthostatic hypotension. Serum TSH was within normal limits. Echocardiogram shows LVEF 60% with normal valves. Chest x-ray showed right medial lower lobe opacity in the vision was better with the aspiration pneumonia for which she was treated with IV ceftriaxone and azithromycin. Patient was evaluated by Physical therapy which recommended front wheel walker with the patient already reported to be having at home. Patient was discharged in stable condition to home. Discharge plan Follow up with the PCP in 1 week Medications: Augmentin 875 mg b.i.d. for 7 days Patient at home took losartan hydrochlorothiazide combination pill which was stopped on discharge Patient is started on losartan 50 mg q.d. and advised that if BP less than 120/80, patient to take half tablet losartan otherwise take full . Consults/Reason for consult none Operations or Procedures CT head without contrast Findings: There is no evidence of an intracranial hemorrhage, acute large vessel infarct, mass effect, or midline shift. Hypodensity in the left frontoparietal lobe. There is mild cerebral atrophy. Mild calcification of the carotid siphons. The calvarium, orbits, paranasal sinuses, sella, middle ears, and mastoids are unremarkable. The superficial soft tissues are within normal limits. Impression: 1. No acute intracranial abnormality. 2. Age indeterminate infarct in the left frontoparietal lobe. Carotid doppler IMPRESSION: No hemodynamically significant stenosis noted in the right carotid system. No hemodynamically significant stenosis noted in the left carotid system. MRI Brain without contrast FINDINGS: Diffusion weighted images of the brain demonstrate no evidence of acute infarction. There is no evidence of acute intracranial hemorrhage, extra-axial collection, mass effect, midline shift, herniation or hydrocephalus. Mild cerebral atrophy. Postsurgical changes related to left frontoparietal craniotomy. Underlying cystic encephalomalacia and gliosis. [id number] changes of chronic microvascular ischemic disease. There are no signal abnormalities on the susceptibility weighted sequences. The major vascular flow voids are present. The visualized paranasal sinuses and mastoid air cells are clear. The surrounding soft tissues and osseous structures are unremarkable. IMPRESSION: No evidence of acute infarction, intracranial hemorrhage, mass effect or hydrocephalus. Postsurgical changes related to left frontoparietal craniotomy with underlying cystic encephalomalacia and gliosis. [id number] changes of chronic microvascular ischemic disease. Mild cerebral atrophy. Condition at Discharge: Good Final Diagnosis/Problems List Dizziness/vertigo likely d/t dehydration, orthostatic hypotension Acute stroke ruled out Pneumonia, community-acquired versus suspected aspiration to Gram-negative/atypical bacteria Uncontrolled type 2 diabetes mellitus with hyperglycemia GERD Discharge Disposition: Home Discharge Instruct/Medications Diet: Consistent carbohydrate Activity: No Restrictions, As Tolerated Follow Up/Referral: Follow up with the PCP in one week Medications: as per EMR losartan 50mg - give full tablet if SBP>120mmhg, half tab if SBP<120mmhg Discharge Statement: "Patient was advised to return to the ER or call 911 if any headaches, dizziness, shortness of breath, chest pain, abdominal pain, bleeding, fevers, or worsening of medical condition. Patient was counseled about treatment plan, medications, possible side effects, patientverbalized understanding. All questions were answered to the best of my ability. This discharge took greater then 30 minutes in planning, reviewing documentation, counseling the patient, and discussing with other team members." ASSESSMENT ASSESSMENT Assessment Dizziness/vertigo likely d/t dehydration, orthostatic hypotension Acute stroke ruled out Pneumonia, community-acquired versus suspected aspiration to Gram- negative/atypical bacteria Uncontrolled type 2 diabetes mellitus with hyperglycemia GERD BERT LUBIN RESIDENT Nov 19, 2024 19:37
== END 2024-11-19 14:06 | disposition home or self-care (01) | DRG 640 ==
LOC: ER 16:45 → TELE 23:16 → TELE-EAST 11-18 18:57
PROVIDERS: ADMIT Student in an Organized Health Care Education/Training Program; ATTEND Student in an Organized Health Care Education/Training Program
DX: E86.0 Dehydration (principal); J15.69 Pneumonia due to other Gram-negative bacteria; J15.9 Unspecified bacterial pneumonia; J69.0 Pneumonitis due to inhalation of food and vomit; I95.1 Orthostatic hypotension; E11.65 Type 2 diabetes mellitus with hyperglycemia; K21.9 Gastro-esophageal reflux disease without esophagitis; E78.5 Hyperlipidemia, unspecified; I10 Essential (primary) hypertension; Z86.73 Personal history of transient ischemic attack (TIA), and cerebral infarction without residual deficits; Z90.49 Acquired absence of other specified parts of digestive tract
CPT/HCPCS: 36415; 70450; 70551; 71045; 80048; 80053; 80061; 80307; 81001; 82010; 82607; 82962; 83036; 84443; 84484; 85025; 86592; 93005; 93306; 93886; 96365; 96375; 97163; 99291; G0378; J1815; J2405; J2470